=== PATIENT | male | born 1940 | race Caucasian/White ===

== ENCOUNTER 2016-11-21 17:34 | Emergency (ER) | payer MEDICARE, OTHER ==
--- NOTE | 2016-11-22 06:03 | ER ---
ADMIT: 11/21/2016 RM/LOC: ER [facility] MR#: [id number] [address] [address] [address] [place] [address] Emergency Room Report SEX: M AGE: 76 : 1940 DATE: 11/21/2016 The patient was signed out to me. Please refer to the main dictation for further information by Dr. Solomon. The patient is a 76-year-old male with a history of COPD, atrial fibrillation, CHF, hypertension, and peripheral vascular disease, who came to the ER because he states the last few days, he had mild shortness of breath and his family doctor, Dr. Lloyd, increased, changed the dosage of Lasix because at that time also he had high potassium too. The patient states his potassium was in the range of 6 and he is supposed to check the potassium level. The patient states the last 3 days after changing the dosage of the Lasix, his shortness of breath got better and he is very close to his baseline. The patient states he had CHF for some time, and if he stops deep breathing, his O2 saturation always goes to 89-90%, but by the time he begins talking, his O2 saturation goes to 96 and up. In the ER, the patient's O2 saturation was in 89%, and when I was talking to the patient on room air was in 96%. The patient's potassium was 4.9. EKG did not show any changes in favor of hyperkalemia also. Troponin levels were negative. There were no ST or T changes too. Creatinine level was 1.4. We checked from previous chart, it changed from 0.9 to 1.3 during the last 2 years. The proBNP was 3800. Considering the patient's chronic CHF and no recent proBNP, there is no good comparison for the response to treatment. At this stage, the patient states he feels good and he is at his baseline, and his shortness of breath which he had a week ago is getting better and he is ready to go home and follow up with the primary doctor. The patient was re- examined. Vitals were stable. Lungs are clear, but there was shallow breathing bilaterally. Chest x-ray has not changed from 2012, and he has mild effusion on the left side with some cardiomegaly. The patient is stable to be discharged to home. I tried to contact Dr. Lloyd, but I could not reach Dr. Lloyd at this time of the day. The patient was advised to follow up with the primary doctor for repeat potassium level and also for further followups and treatments. The patient acknowledged he understood the plan and agreed with it and was discharged home. Don Morin MD/ malcolm JOB #: [id number] CC: Kodak Solomon MD, Attending Physician Jian Lloyd MD, Family Physician
[2017-05-16] MEDS ORDERED: COUMADIN2.5 MG PO (19:32)
[2017-05-16] MEDS ORDERED: XANAX DPS0.5 MG PO (19:32)
[2017-05-16] MEDS ORDERED: FLECAINIDE ACE100 MG PO (19:33)
[2017-05-16] MEDS ORDERED: THERA1 EACH PO (19:33)
[2017-05-16] MEDS ORDERED: COZAAR DPS25 MG PO (19:33)
[2017-05-16] MEDS ORDERED: MONTELUKAST SOD10 MG PO (19:33)
[2017-05-16] MEDS ORDERED: LASIX20 MG PO (19:33)
[2017-05-16] MEDS ORDERED: PROAIR HFA8.5 GM IH (19:34)
[2017-05-16] MEDS ORDERED: AMBIEN DPS5 MG PO (19:34)
== END 2016-11-21 20:19 | disposition home or self-care (01) ==
LOC: ER 17:34
DX: E87.5 Hyperkalemia (principal); I50.9 Heart failure, unspecified; J44.9 Chronic obstructive pulmonary disease, unspecified; Z79.01 Long term (current) use of anticoagulants; Z87.891 Personal history of nicotine dependence; Z86.718 Personal history of other venous thrombosis and embolism; Z79.899 Other long term (current) drug therapy

== ENCOUNTER 2016-11-22 23:26 | Emergency (ER) | payer MEDICARE, OTHER ==
--- NOTE | 2016-11-26 19:49 | ER ---
ADMIT: 11/22/2016 RM/LOC: ER [facility] MR#: [id number] [address] [address] [address] [place] [address] Emergency Room Report SEX: M AGE: 76 : 1940 DATE: 11/22/2016 HISTORY OF PRESENT ILLNESS: The patient is a 76-year-old male with past medical history of COPD, CHF, DVT, atrial fibrillation, who came to the ER with chief complaint of shortness of breath. The patient was yesterday in the ER and had a full workup. The patient states he felt a few minutes of shortness of breath, which was mild, and he decided to come to the hospital to be checked, and by the time he left, the shortness of breath completely resolved. The patient denies using any inhaler or other medications. The patient denies any chest pain during this period. The patient states the shortness of breath was very mild, but she just wanted to get it checked. At the moment, the patient is in no distress, denies any shortness of breath or chest pain or any discomfort or diaphoresis. The patient has no palpitation at home or here. PHYSICAL EXAMINATION: GENERAL: The patient was sitting quite and calm, in no distress. VITAL SIGNS: O2 saturation is 95% on room air, the patient is afebrile, respiratory rate is 18, and blood pressure is 157/64 with a heart rate of 54. On the monitoring, the patient had no arrhythmia. HEAD AND NECK: Noncontributory, trachea is midline. LUNGS: There are no crackles or wheezing or extra sound on the lungs. HEART: The patient had normal S1, S2 without any murmurs or S3 of S4. ABDOMEN: Soft, the rest of the physical exam is noncontributory. The patient yesterday had a full workup, which all were checked by myself. The patient is in no pain or distress and states he is ready to go home at the moment because did not expect shortness of breath to resolve. The patient was advised to use the inhaler if needed and he agreed upon it. The patient was discharged to home. Don Morin MD/ malcolm JOB #: [id number] CC: Don Morin MD, Attending Physician Jian Lloyd MD, Family Physician
[2017-05-16] MEDS ORDERED: XANAX DPS0.5 MG PO (19:32)
[2017-05-16] MEDS ORDERED: COUMADIN2.5 MG PO (19:32)
[2017-05-16] MEDS ORDERED: FLECAINIDE ACE100 MG PO (19:33)
[2017-05-16] MEDS ORDERED: MONTELUKAST SOD10 MG PO (19:33)
[2017-05-16] MEDS ORDERED: THERA1 EACH PO (19:33)
[2017-05-16] MEDS ORDERED: LASIX20 MG PO (19:33)
[2017-05-16] MEDS ORDERED: COZAAR DPS25 MG PO (19:33)
[2017-05-16] MEDS ORDERED: PROAIR HFA8.5 GM IH (19:34)
[2017-05-16] MEDS ORDERED: AMBIEN DPS5 MG PO (19:34)
== END 2016-11-23 00:39 | disposition home or self-care (01) ==
LOC: ER 23:26
DX: J44.9 Chronic obstructive pulmonary disease, unspecified (principal); I50.9 Heart failure, unspecified; Z86.718 Personal history of other venous thrombosis and embolism; Z79.01 Long term (current) use of anticoagulants; Z79.899 Other long term (current) drug therapy

== ENCOUNTER 2017-01-12 14:31 | Emergency (ER) | payer MEDICARE, OTHER ==
--- NOTE | 2017-01-18 17:54 | ER ---
ADMIT: 01/12/2017 RM/LOC: ER [facility] MR#: [id number] [id number] [address] [address] [place] [address] Emergency Room Report SEX: M AGE: 76 : 1940 CORRECTED: 01/14/2017 1127 DJS DATE: 01/12/2017 BRIEF ADDENDUM: Please see my T-sheet for complete review of systems, past medical history, and physical exam. CHIEF COMPLAINT: Shortness of breath. HISTORY OF PRESENT ILLNESS: A 76-year-old male, presents with shortness of breath and cough since this morning. States he has been dealing with some of his seasonal allergy problems lately, awoke this morning with some nasal congestion, started coughing and feeling short of breath. Denies any fevers or chills, sweating, chest pain, discomfort. Does have some chronic lower leg edema secondary to heart failure. He has a cough that is nonproductive. Past history of an atrial arrhythmia and chronic heart failure, COPD, hypertension, hyperlipidemia, and obstructive sleep apnea. Follows with Dr. Lloyd regularly. He is on Coumadin for his atrial arrhythmia. ALLERGIES: NO KNOWN MEDICAL ALLERGIES. SOCIAL HISTORY: He is a past smoker, quit in 1979. COURSE IN EMERGENCY ROOM: The patient was seen and examined. PHYSICAL EXAMINATION: VITAL SIGN: He is afebrile and nontoxic. GENERAL: He is in no acute distress. Sats in the low 90s. He is alert. HEENT: Normocephalic and atraumatic. No pharyngeal erythema or purulent nasal drainage. NECK: Soft and supple. No lymphadenopathy. RESPIRATORY: No distress. CHEST: Breath sounds equal bilaterally. He moves good air. CVS: Heart, regular rate and rhythm. No murmurs, gallops, or rubs. ABDOMEN: Soft and nontender. SKIN: Warm and dry. EXTREMITIES: He does have some pedal edema bilaterally, states this is no worse than it typically is. NEUROLOGIC: He is alert and oriented x4. LABORATORY DATA: White count 5.3, hemoglobin 15, hematocrit 46, and platelets 140. Chemistry: Sodium 144, potassium 4.5, BUN 24, glucose 127, creatinine 1.3, lactic acid 1.7. Chest x-ray, no acute infiltrates. There is no cardiomegaly. EKG, rate of 50, is on beta blockers. No ST, T, or Q wave ADMIT: 01/12/2017 RM/LOC: ER [facility] MR#: [id number] [address] [address] [place] [address] Emergency Room Report SEX: M AGE: 76 : 1940 abnormalities. IMPRESSION: 1. Chronic obstructive pulmonary disease. 2. Shortness of breath. DISPOSITION: The patient was discharged home to continue to push fluids. Tylenol or ibuprofen for fever. Follow up with Dr. Lloyd this week. Questions sought and answered to best of my ability to the patient's satisfaction. Discharged in stable condition. DHAVAL Huntley / Manuel Corral MD / modl JOB #: [id number] CC: Manuel Corral MD, Attending Physician Jian Lloyd MD, Family Physician CORRECTED: 01/14/2017 1127 DJS
[2017-05-16] MEDS ORDERED: XANAX DPS0.5 MG PO (19:32)
[2017-05-16] MEDS ORDERED: COUMADIN2.5 MG PO (19:32)
[2017-05-16] MEDS ORDERED: MONTELUKAST SOD10 MG PO (19:33)
[2017-05-16] MEDS ORDERED: FLECAINIDE ACE100 MG PO (19:33)
[2017-05-16] MEDS ORDERED: COZAAR DPS25 MG PO (19:33)
[2017-05-16] MEDS ORDERED: LASIX20 MG PO (19:33)
[2017-05-16] MEDS ORDERED: THERA1 EACH PO (19:33)
[2017-05-16] MEDS ORDERED: AMBIEN DPS5 MG PO (19:34)
[2017-05-16] MEDS ORDERED: PROAIR HFA8.5 GM IH (19:34)
== END 2017-01-12 17:27 | disposition home or self-care (01) ==
LOC: ER 14:31
DX: J44.9 Chronic obstructive pulmonary disease, unspecified (principal); R06.02 Shortness of breath; I11.0 Hypertensive heart disease with heart failure; I50.9 Heart failure, unspecified; E78.5 Hyperlipidemia, unspecified; Z87.891 Personal history of nicotine dependence; Z79.01 Long term (current) use of anticoagulants; Z79.899 Other long term (current) drug therapy; Z91.048 Other nonmedicinal substance allergy status

== ENCOUNTER 2017-01-30 06:59 | Day surgery (SDC) | payer MEDICARE, OTHER ==
[~2017-01-30] VITALS: Ht 190.5 cm; Wt 130.5 kg
--- NOTE | 2017-02-10 06:57 | CVR ---
ADMIT: 01/30/2017 RM/LOC: [facility] MR#: [id number] [address] [address] [address] [place] [address] Cardioversion Report SEX: M AGE: 76 : 1940 DATE: 01/30/2017 INDICATION: Joseph is a 76-year-old male with history of persistent atrial fibrillation who was recently seen with recurrence of his atrial fibrillation. He has been on flecainide for antiarrhythmic and metoprolol for rate control, and he is anticoagulated with Coumadin. He has been symptomatic, and so he was scheduled for an elective cardioversion. PROCEDURE: The patient was prepped in usual fashion and given propofol by Anesthesia for sedation. The patient received a single 120 joule biphasic shock converting from atrial fibrillation to normal sinus rhythm. The patient tolerated the procedure well. He did have some apnea after the cardioversion that quickly resolved. SUMMARY: Successful cardioversion from atrial fibrillation to normal sinus rhythm. We will place a one week Zio patch given his underlying bradycardia, and I will see him back in one month. Antoine Nick MD/ malcolm JOB #: [id number] CC: Antoine Nick, Attending Physician Jian Lloyd, Family Physician Jian Lloyd MD
[2017-05-16] MEDS ORDERED: COUMADIN2.5 MG PO (19:32)
[2017-05-16] MEDS ORDERED: XANAX DPS0.5 MG PO (19:32)
[2017-05-16] MEDS ORDERED: COZAAR DPS25 MG PO (19:33)
[2017-05-16] MEDS ORDERED: LASIX20 MG PO (19:33)
[2017-05-16] MEDS ORDERED: FLECAINIDE ACE100 MG PO (19:33)
[2017-05-16] MEDS ORDERED: MONTELUKAST SOD10 MG PO (19:33)
[2017-05-16] MEDS ORDERED: THERA1 EACH PO (19:33)
[2017-05-16] MEDS ORDERED: AMBIEN DPS5 MG PO (19:34)
[2017-05-16] MEDS ORDERED: PROAIR HFA8.5 GM IH (19:34)
== END 2017-01-30 11:18 | disposition home or self-care (01) ==
LOC: SSS 06:59
PROC: 5A2204Z Restoration of Cardiac Rhythm, Single (ICD-10-PCS; principal; 2017-01-30)
DX: I48.1 Persistent atrial fibrillation (principal); I10 Essential (primary) hypertension; E78.5 Hyperlipidemia, unspecified; I47.1 Supraventricular tachycardia; I42.9 Cardiomyopathy, unspecified; Z88.8 Allergy status to other drugs, medicaments and biological substances; J44.9 Chronic obstructive pulmonary disease, unspecified; M19.90 Unspecified osteoarthritis, unspecified site; Z86.718 Personal history of other venous thrombosis and embolism; Z98.42 Cataract extraction status, left eye; Z87.891 Personal history of nicotine dependence; Z98.890 Other specified postprocedural states